=== PATIENT | female | born 1965 | race African-American/Black ===

== ENCOUNTER 2018-05-14 08:03 | Outpatient (CLI) | payer BC ==
[2018-05-14] MEDS ORDERED: ISOVUE-370 76%-LOCM 1 ML ONE (13:27)
== END 2018-05-14 08:04 | disposition home or self-care (01) ==
LOC: BICCT 08:03
PROVIDERS: ATTEND Specialist
DX: R10.30 Lower abdominal pain, unspecified (principal); K76.89 Other specified diseases of liver; Z90.710 Acquired absence of both cervix and uterus
CPT/HCPCS: 74177

== ENCOUNTER 2021-10-21 12:04 | Outpatient (CLI) | payer BC ==
[2021-10-21 22:27] LABS: SARS-CoV-2 PCR by NAA Not Detected (NotDetected)
== END 2021-10-21 12:05 | disposition home or self-care (01) ==
LOC: LABBT 12:04
PROVIDERS: ATTEND Family Medicine
DX: Z01.812 Encounter for preprocedural laboratory examination (principal); Z20.822 Contact with and (suspected) exposure to COVID-19
CPT/HCPCS: U0003; U0005

== ENCOUNTER 2021-10-24 10:56 | Outpatient (CLI) | payer BC | END 2021-10-24 10:57 | disposition home or self-care (01) | PROVIDERS: ATTEND Otolaryngology Otolaryngic Allergy | DX: R13.13 Dysphagia, pharyngeal phase (principal); R13.12 Dysphagia, oropharyngeal phase; R63.30 Feeding difficulties, unspecified | CPT/HCPCS: 74230 ==